=== PATIENT | female | born 1950 | race Caucasian/White ===

== ENCOUNTER 2020-10-15 13:17 | Outpatient (CLI) | payer MEDICARE, SELFPAY ==
--- NOTE | ~2020-10-15 | MM_ITS ---
EXAMINATION: MM screening rosemary BI w anupama HISTORY: Screening TECHNIQUE: Craniocaudal and mediolateral oblique 3-D tomosynthesis images were obtained and synthetic 2-D images were generated. CAD analysis was submitted and interpreted. COMPARISON: Comparison to multiple prior studies sequentially, with oldest reviewed study dated 01/03. BREAST PARENCHYMAL COMPOSITION: There are scattered areas of fibroglandular density. FINDINGS: There is no evidence of suspicious mass, calcification, or architectural distortion to sugg est malignancy in either breast. There has been no suspicious interval change. IMPRESSION: 1. No mammographic evidence of malignancy. 2. Recommend routine screening mammography in one year. BI-RADS Category 1: Negative Reviewed, dictated and finalized at location A. [employer]
== END 2020-10-15 13:18 | disposition home or self-care (01) ==
LOC: ANHIMG 13:21
PROVIDERS: PCP Nurse Practitioner Adult Health; Visit Provider Family Medicine
DX: Z12.31 Encounter for screening mammogram for malignant neoplasm of breast (principal)
CPT/HCPCS: 77063; 77067

== ENCOUNTER → 2021-09-28 04:00 | Outpatient (CLI) | payer MEDICARE, SELFPAY ==
[2021-09-28 20:22] LABS: SARS-CoV-2 RNA PCR Positive
== END ==
PROVIDERS: PCP Nurse Practitioner Adult Health; Visit Provider Nurse Practitioner Adult Health
DX: U07.1 COVID-19 (principal)
CPT/HCPCS: C9803; U0003; U0005

== ENCOUNTER 2021-12-22 08:19 | Outpatient (CLI) | payer MEDICARE, SELFPAY ==
--- NOTE | ~2021-12-22 | MM_ITS ---
EXAMINATION: MM screening rosemary BI w anupama HISTORY: Screening TECHNIQUE: Craniocaudal and mediolateral oblique 3-D tomosynthesis images were obtained and synthetic 2-D images were generated. CAD analysis was submitted and interpreted. COMPARISON: Comparison to multiple prior studies sequentially, with oldest reviewed study dated 09/2015. BREAST PARENCHYMAL COMPOSITION: The breasts are almost entirely fatty. FINDINGS: There is no evidence of suspicious mass, calcification, or architectural distortion to sugg est malignancy in either breast. There has been no suspicious interval change. IMPRESSION: 1. No mammographic evidence of malignancy. 2. Recommend routine screening mammography in one year. BI-RADS Category 1: Negative Reviewed, dictated and finalized at location A.
== END 2021-12-22 08:20 | disposition home or self-care (01) ==
PROVIDERS: PCP Nurse Practitioner Adult Health; Visit Provider Nurse Practitioner Adult Health
DX: Z12.31 Encounter for screening mammogram for malignant neoplasm of breast (principal)
CPT/HCPCS: 77063; 77067

== ENCOUNTER 2023-03-10 07:32 | Outpatient (CLI) | payer MEDICARE, SELFPAY ==
--- NOTE | ~2023-03-10 | MM_ITS ---
EXAMINATION: MM screening rosemary BI w anupama HISTORY: Screening mammogram TECHNIQUE: Craniocaudal and mediolateral oblique 3-D tomosynthesis images were obtained and synthetic 2-D images were generated. CAD analysis was submitted and interpreted. COMPARISON: December 22, 2021, October 15, 2020, August 13, 2019 bilateral screening mammogram examinat ions BREAST PARENCHYMAL COMPOSITION: The breasts are almost entirely fatty. FINDINGS: There is no evidence of suspicious mass, calcification, or architectural distortion to sugg est malignancy in either breast. There has been no suspicious interval change. IMPRESSION: 1. No mammographic evidence of malignancy. 2. Recommend routine screening mammography in one year. BI-RADS Category 1: Negative Reviewed, dictated and finalized at location A.
== END 2023-03-10 07:33 | disposition home or self-care (01) ==
LOC: ANHIMG 07:34
PROVIDERS: PCP Nurse Practitioner Family; Visit Provider Nurse Practitioner Family
DX: Z12.31 Encounter for screening mammogram for malignant neoplasm of breast (principal)
CPT/HCPCS: 77063; 77067

== ENCOUNTER 2024-07-11 07:54 | Outpatient (CLI) | payer MEDICARE, SELFPAY ==
--- NOTE | ~2024-07-11 | DEXA_ITS ---
Bone Density Report Name: VINCE LIGHT Age: 74 Sex: Female Ethnicity: White Date of : 1950 Indication: postmenopausal; screening for osteoporosis; height loss; hysterectomy; Referring Provider: OLESYA, RUCHI Bales Study: Bone densitometry was performed. Exam Date: July 11, 2024 Accession number: [id number] Bone Density: Region BMD T-score Z-score Classification AP Spine(L1-L4) 0.989 -0.5 1.9 Normal Femoral Neck (Left) 0.687 -1.5 0.6 Osteopenia Total Hip (Left) 0.869 -0.6 1.2 Normal Femoral Neck (Right) 0.685 -1.5 0.6 Osteopenia Total Hip (Right) 0.826 -1.0 0.9 Normal Total Hip Mean 0.848 -0.8 1.1 Normal World Health Organization criteria for BMD impression classify patients as: Normal (T-score at or above -1.0), Osteopenia (T-score between -1.0 and -2.5), or Osteoporosis (T-score at or below -2.5). 10-year Fracture Risk(1): Major Osteoporotic Fracture 9.7% Hip Fracture 1.7% Reported Risk Factors: [place] (), Neck BMD=0.687, BMI=41.1 (1) FRAX(R) Version 3.08. Fracture probability calculated for an untreated patient. Fracture probability may be lower if the patient has received treatment. Previous Exams: Region Exam Age BMD T-score BMD Change BMD Change Date g/cm2 vs Baseline vs Previous AP Spine (L1-L4) 07/11/2024 74 0.989 -0.5 0.035 (3.6%)* 0.028 (2.9%)# 08/13/2019 69 0.961 -0.8 0.007 (0.7%)# 0.007 (0.7%)# 01/03/2015 64 0.954 -0.8 Total Hip(Left) 07/11/2024 74 0.869 -0.6 -0.069 (-7.3%) -0.065 (-7.0%) 08/13/2019 69 0.935 -0.1 -0.003 (-0.4%) -0.003 (-0.4%) 01/03/2015 64 0.938 0.0 Total Hip(Right) 07/11/2024 74 0.826 -1.0 -0.101 (-10.9% -0.104 (-11.2% 08/13/2019 69 0.930 -0.1 0.003 (0.3%)# 0.003 (0.3%)# 01/03/2015 64 0.927 -0.1 *Denotes significance at 95% confidence level, LSC for AP Spine = 0.022 g/cm2, LSC for Total Hip = 0.027 g/cm2 # Denotes dissimilar scan types or analysis methods Clinical Information Provided by Patient: Has used the following medications: Vitamin D Has the following medical conditions: Hysterectomy Patient maximum height was 65.5 Drinks caffeinated beverages Onset of menses at age 11 Number of children 1 Impression: The patient has low bone mass, based on the Left Femoral Neck T-score. The patient has an estimated ten-year risk of hip fracture of 1.7% and an estimated ten-year risk of major fracture of 9.7%, based on the WHO FRAX algorithm. No significant bone loss was observed. Discussion: BONE DENSITY IS LOW AT ONE OR MORE SKELETAL SITES. This patient's lowest T-score is low at one or more skeletal sites. It meets the World Health Organization's (WHO) criteria for ?low bone mass? (T-score between -1.0 and -2.5). The patient's 10-year risk of fracture as calculated by FRAX is less than the threshold where pharmacological therapy is recommended by the National Osteoporosis Foundation (NOF). However, all treatment decisions require clinical judgment and consideration of individual patient factors, including patient preferences, comorbidities, previous drug use, risk factors not captured in the FRAX model (e.g., frailty, falls, vitamin D deficiency, increased bone turnover, interval significant decline in bone density) and possible under or overestimation of fracture risk by FRAX. The patient should follow a healthful lifestyle (good nutrition with adequate calcium and vitamin D, and appropriate weight-bearing exercise). Follow-Up: Consider repeating this study in 2 to 3 years to reassess this patient's status, or sooner if there is some new clinical indication. Reported by: SHANITA on 07/11/2024 8:33:00 AM. Reviewed, dictated and finalized at location [facility] PICHARDO
--- NOTE | ~2024-07-11 | MM_ITS ---
EXAMINATION: MM screening rosemary BI w anupama HISTORY: Screening TECHNIQUE: Craniocaudal and mediolateral oblique 3-D tomosynthesis images were obtained and synthetic 2-D images were generated. CAD analysis was submitted and interpreted. COMPARISON: Comparison to multiple prior studies sequentially, with oldest reviewed study dated 04/29. BREAST PARENCHYMAL COMPOSITION: Not Dense: The breasts are almost entirely fatty. FINDINGS: There is a developing cluster of punctate indeterminate calcifications in the upper outer q uadrant of the left breast, middle depth. The right breast is stable without evidence for malignancy. IMPRESSION: 1. Developing cluster of punctate left breast calcifications, upper outer quadrant middle depth. 2. Magnification views are recommended. BI-RADS Category 0: Incomplete: Needs additional imaging evaluation. Reviewed, dictated and finalized at location B. IMPRESSION: 1. Developing cluster of punctate left breast calcifications, upper outer quadr ant middle depth. 2. Magnification views are recommended. BI-RADS Category 0: Incomplete: Needs additional imaging evaluation.
== END 2024-07-11 07:55 | disposition home or self-care (01) ==
LOC: ANHIMG 07:57
PROVIDERS: PCP Nurse Practitioner Family; Visit Provider Family Medicine
DX: Z12.31 Encounter for screening mammogram for malignant neoplasm of breast (principal); R92.1 Mammographic calcification found on diagnostic imaging of breast; M85.89 Other specified disorders of bone density and structure, multiple sites; Z78.0 Asymptomatic menopausal state
CPT/HCPCS: 77063; 77067; 77080

== ENCOUNTER 2024-08-06 10:46 | Outpatient (CLI) | payer MEDICARE, SELFPAY ==
--- NOTE | ~2024-08-06 | MM_ITS ---
EXAMINATION: MM diagnostic rosemary LT w anupama HISTORY: Left breast microcalcifications TECHNIQUE: Spot magnification 3-D tomosynthesis images of the left breast were performed and syntheti c 2-D images were generated. CAD analysis was submitted and interpreted. COMPARISON: 07/11/2024 BREAST PARENCHYMAL COMPOSITION:Not Dense. The breasts are almost entirely fatty FINDINGS: Spot magnification views demonstrate a small loose group of punctate microcalcifications. N o definite pleomorphism or suspicious microcalcifications. No mass lesion or distortion. IMPRESSION: Loose group of probably benign microcalcifications in the left breast. Given small size/number of mannie cifications, six-month follow-up mammogram recommended to assure stability. BI-RADS category 3, probably benign findings. Reviewed, dictated and finalized at location . R REGULATOR IMPRESSION: Loose group of probably benign microcalcifications in the left breast. Given sm all size/number of calcifications, six-month follow-up mammogram recommended to assure stability. BI-RADS category 3, probably benign findings.
== END 2024-08-06 10:47 | disposition home or self-care (01) ==
PROVIDERS: PCP Internal Medicine; Visit Provider Internal Medicine
DX: R92.8 Other abnormal and inconclusive findings on diagnostic imaging of breast (principal)
CPT/HCPCS: 77061; 77065; G0279

== ENCOUNTER 2024-10-11 08:43 | Emergency (ER) | payer MEDICARE, SELFPAY ==
[2024-10-11 08:47] VITALS: BP 146/81; PULSE 76; RESP 16; TEMP 36.7; O2SAT 99
--- NOTE | 2024-10-11 09:00 | ED_ITS ---
HPI - URI/Sore Throat General Chief Complaint: Upper Respiratory Infection Stated Complaint: Sore Throat Time Seen by Provider: 10/11/24 09:01 Source: patient, RN notes reviewed and old records reviewed Mode of arrival: ambulatory Limitations: no limitations History of Present Illness HPI Narrative: Patient presents with complaints of runny nose and sore throat that began yesterday. She has not been taking anything for her symptoms. She is worried because she is going to visit relatives and does not want to be contagious. She denies any fever, chills, sweats. Voices no other concerns or complaints today Related Data Home Medications ?Medication ?Instructions ?Recorded ?Confirmed ?Last Taken ?Type metoprolol succinate 50 mg mg PO 10/11/24 Unknown History tablet,extended release 24 hr triamterene 37.5 tablet 10/11/24 Unknown History mg-hydrochlorothiazide 25 mg tablet Allergies Allergy/AdvReac Type Severity Reaction Status Date / Time Penicillins Allergy Severe Other Verified 10/11/24 08:46 prednisone Allergy Mild SWELLING Verified 10/11/24 08:46 OF LIPS Review of Systems Review of Systems: All systems reviewed & are unremarkable except as noted in HPI and below Constitutional: Constitutional: Reports no additional constitutional complaints ENT: Reports system reviewed and no additional complaints, except as doc umented, Reports nasal congestion, Reports nasal discharge and Reports sore throat Cardiovascular: Cardiovascular: Reports no additional cardiovascular complaints Respiratory: Respiratory: Reports no additional respiratory complaints Gastrointestinal: Gastrointestinal: Reports no additional gastrointestinal complaints PMFSH Comments At the time of my signature, I reviewed and agree with the nursing past medical, surgical, social, and family history. There is no relevant family history pertinent to the patient complaint. Exam Const: General: cooperative, no acute distress, alert and awake Orientation/consciousness: oriented to person, oriented to place and oriented to time HENMT: Head: normal to inspection Ears: TM's normal bilaterally Mouth: Yes moist mucous membranes Throat: posterior oropharynx normal Resp: Effort & Inspection: normal respiratory effort and able to speak in complete sentences Auscultation: clear to auscultation bilaterally, no crackles, no rales, no rhonchi and no wheezes Cardio: Palpation: normal PMI Rate: regular rate Rhythm: regular rhythm Heart sounds: S1 normal heart sound present and S2 normal heart sound present Neuro: General: oriented to person, oriented to place and oriented to time Cranial nerves: Yes CN's II-XII intact bilaterally Psych: Appearance: grossly normal Thought process: Normal thought process present Insight: Good insight present (Psych) Judgement: Good judgement present (Psych) Course Course Level of Care: Express Care Visit Vital Signs Vital signs: Vital Signs Temperature 98.0 F 10/11/24 08:47 Pulse Rate 76 10/11/24 08:47 Respiratory Rate 16 10/11/24 08:47 Blood Pressure 146/81 H 10/11/24 08:47 Pulse Oximetry 99 10/11/24 08:47 Oxygen Delivery Room Air 10/11/24 08:47 Temperature 98.0 F 10/11/24 08:47 Pulse Rate 76 10/11/24 08:47 Respiratory Rate 16 10/11/24 08:47 Blood Pressure 146/81 H 10/11/24 08:47 Pulse Oximetry 99 10/11/24 08:47 Oxygen Delivery Room Air 10/11/24 08:47 Reviewed MDM - URI/Sore Throat MDM Narrative Medical decision making narrative: Negative strep, reassuring physical exam. Supportive care measures discussed with patient. Discharge instructions reviewed with patient, as well as provided in writing per nursing staff. The instructions also include specific and strict return/GO TO THE ER as well as f/u information. All questions have been answered, and the patient deny any further questions with discharge and discharge plan. Some parts of this dictation were generated by voice recognition software and may contain typographical and/or grammatical inaccuracies. Differential Diagnosis Differential diagnosis: Likely upper respiratory infection, otitis media, viral infection and pharyngitis Medical Records Attestation: I reviewed the patient's medical records. Lab Data Attestation: I reviewed the patient's lab results. Discharge Plan Discharge Clinical Impression: Upper respiratory infection Qualifiers: URI type: unspecified viral URI Qualified Code(s): J06.9 - Acute upper respiratory infection, unspecified Patient Disposition: Home, Self-Care Condition: Stable Instructions: Antibiotic Form, Cold Symptoms (ED) Additional Instructions: Use [id number] medications to treat your symptoms. Follow package instructions. Follow-up with primary care provider. Emergency department for new or worse symptoms. Blood pressure today is 146/81. This is elevated. Normal blood pressure is 120/80. Please discuss this with primary care provider Patient Language: Grenadian Prescriptions: No Action metoprolol succinate 50 mg tablet extended release 24 hr PO triamterene-hydrochlorothiazid 37.5-25 mg tablet Follow-up/Referrals: Jean,MD Sunni [Primary Care Provider] - 1 Week Time of Disposition: 09:13
[2024-10-11 09:07] LABS: EDSTREPNEGPOS1 Negative (Negative)
== END 2024-10-11 09:15 | disposition home or self-care (01) ==
PROVIDERS: Emergency Provider Nurse Practitioner Family; PCP Internal Medicine
DX: J06.9 Acute upper respiratory infection, unspecified (principal); I10 Essential (primary) hypertension
CPT/HCPCS: 87081; 87880; 99213; G0463

== ENCOUNTER 2025-02-04 10:18 | Outpatient (CLI) | payer MEDICARE, SELFPAY ==
--- NOTE | ~2025-02-04 | MM_ITS ---
EXAMINATION: MM diagnostic rosemary LT w anupama HISTORY: Follow-up left breast calcifications TECHNIQUE: Additional 3-D tomosynthesis images of the left breast were performed and synthetic 2-D im ages were generated. CAD analysis was submitted and interpreted. COMPARISON: Comparison to multiple prior studies sequentially, with oldest reviewed study dated 07/21. BREAST PARENCHYMAL COMPOSITION: Not Dense: The breasts are almost entirely fatty. FINDINGS: Clustered punctate monomorphic calcifications in the upper outer quadrant of the left breas t, middle third, are stable compared with prior study. No new masses, calcifications or architectural distortion in the left breast. IMPRESSION: 1. Stable likely benign left breast calcifications. 2. Recommend 6 month follow-up diagnostic bilateral mammogram recommended. BI-RADS category 3, probably benign findings. Reviewed, dictated and finalized at location B.
--- OUTSIDE RECORDS SUMMARY | 2025-02-04 10:55 | XMS_ITS | CONTINUITY OF CARE DOCUMENT ---
Author Name michellechristina michellechristina Address Unknown Organization [facility] Address [address] [place] [address] Phone [phone] Care Team Providers Care Outdoor Adventure Leader Name Role Phone Edelmira Guevara MD Unavailable MICHELINE PORTILLO MD Unavailable PROBLEMS Condition Status Date Provider Notes Carotid artery stenosis - bilateral active Edelmira Guevara MD Cardiovascular Condition Screening active S lauro Guevara MD Palpitations active Edelmira Guevara MD Hypercholesterolemia active Edelmira zhu MD Vitamin D Deficiency active Edelmira zhu MD Osteoarthritis active Edelmira Guevara MD АНДРЕЙ- on CPAP active Edelmira Guevara MD Hypertension active Edelmira Guevara MD Cardiology examination active Edelmira fields MD ENCOUNTERS Date Type Provider Location Encounter Diag nosis 11/23 - 11/26 In-person encounter Office Visit Edelmira Guevara MD [facility] 10/03 - 10/03 In-person encounter Office Visit Edelmira Guevara MD [facility] Cardiology examinationHypertensionOSA- o n CPAPOsteoarthritisVitamin D DeficiencyHypercholesterolemiaPalpitationsCardiovasc ular Condition ScreeningCarotid artery stenosis - bilateral VITAL SIGNS Date Observation Value Provider Body Mass Index (Ratio) 41.62 kg/m2 Radha Guevara MD blood pressure, diastolic 82 mm[Hg] Delma nelson Ruple blood pressure, systolic 138 mm[Hg] Joy mackenzie Ruple oxygen saturation, oximetry 97 % Tia Ruple pulse rate 63 /min Tia Ruple blood pressure, cuff size regular Delma nelson Ruple weight E&M 235 [lb_av] Tia Ruple height E&M 63 [in_i] Tia Ruple weight E&M 241 [lb_av] Bea Owens g Body Mass Index (Ratio) 42.69 kg/m2 Radha Guevara MD blood pressure, diastolic 90 mm[Hg] Li [facility] blood pressure, systolic 132 mm[Hg] Ana Laura [facility] blood pressure, cuff size large Ke rri Gruenenfelder blood pressure, diastolic 90 mm[Hg] Ke rri Gruenenfelder blood pressure, systolic 132 mm[Hg] Shun ri Arianenfelder oxygen saturation, oximetry 97 % Yessenia Gonzalez pulse rate 62 /min Yessenia Anuj lder weight E&M 241 [lb_av] Yessenia Nnamdie lder height E&M 63 [in_i] Yessenia Dulce Marianenfe lder ALLERGIES Allergy Name Onset Date Reaction Criticality Status STEROIDS Low Criticality active FREDDY Low Criticality active PREDNISONE Low Criticality active RESULTS Date Observation Value Provider Reference Range Interpretation Location cholesterol, non-HDL, total 153 MG/DL (CALC) [facility] <130 High cholesterol/HDL ratio, serum, percent 3.1 (calc) [facility] <5.0 Normal LDL cholesterol, serum 136 MG/DL (CALC) [facility] High triglyceride, serum, fasting 75 mg/dL [facility] <150 Normal HDL cholesterol, serum 73 mg/dL [facility] > OR = 50 Normal cholesterol, serum 226 mg/dL [facility] <200 High HISTORY OF MEDICATION USE Medication Status Instructions Dates Provider Indications Com ments Crestor 5 mg tablet active TAKE 1 TABLET BY MOUTH EVERYDAY AT BEDTIME 7 Edelmira Guevara MD metoprolol succinate 50 mg tablet extended release 24 hr active Take 1 tablet by mouth once daily Yessenia Gonzalez triamterene-hyd rochlorothiazid 37.5-25 mg tablet active take 1 pill a day Yessenia Gonzalez aspirin 81 mg tablet,delayed release (DR/EC) active Take 1 tablet by mouth once a day Yessenia Gonzalez SOCIAL HISTORY Date Observation Value Provider smoking, year quit 1981 Edelmira Guevara MD cigarette use yes Edelmira blood MD smoking status Former smoker Edelmira olvera MD smoking, year quit 1981 Edelmira Guevara MD cigarette use yes Edelmira blood MD smoking status Former smoker Edelmira olvera MD INSURANCE PROVIDERS Payer name Policy type / Coverage type [place] red libertarian ID [facility] [id number] [place] MEDICARE PART B Medicare [id number] ADVANCE DIRECTIVES Name Date DISCUSSED - NO DECISION MADE TREATMENT PLAN Date Name Performer Cardiology:The patie nt is using CPAP on a regular basis. The patient has been benefiting from therapy and should continue use. T his visit has been a part of the consistent, comprehensive, and ongoing management of the chronic medical condition(s) listed above for the patient. Edelmira Guevara MD Cardiology:Continue toprololXL Edelmira Guevara MD Cardiology:Started C restor 5mg today C heck lipids 2-3 months r ecommend dietary changes before adding statin r epeat labs This visit has been a part of the consistent, comprehensive, and ongoing management of the chronic medical condition(s) listed above for the patient. Edelmira Guevara MD Cardiology:This visi t has been a part of the consistent, comprehensive, and ongoing management of the chronic medical condition(s) listed above for the patient. R PM reviewed. BP 131/73. BP today: 138/82 P rior BP: 132/90 (10/03/2024) Her updated medication list for this problem includes: Metoprolol Succinate 50 Mg Tablet Extended Release 24 Hr (Metoprolol succinate) ..... Take 1 tablet by mouth once daily Triamterene-hydrochlorothiazid 37.5-25 Mg Tablet (Triamterene-hydrochlorothiazid) ..... Take 1 pill a day Aspirin 81 Mg Tablet,delayed Release (dr/ec) (Aspirin) ..... Take 1 tablet by mouth once a day Edelmira Guevara MD Cardiology:CONCLUSIO NS: 1 . There is septal hypertrophy without outflow tract obstruction. Normal left ventricular systolic function. Normal left v entricular size. There is E to A wave reversal consistent with impaired LV relaxation. E/E': 6.7 Left ventricular ejection f raction is measured at 60 %. 2 . Mild enlargement of right ventricle. Normal right ventricular systolic function. 3. No significant valvular abnormalities. This visit has been a part of the consistent, comprehensive, and ongoing management of the chronic medical condition(s) listed above for the patient. Edelmira Guevara MD Cardiology:CONCLUSIO NS: 1 . Mild plaque with less than 50% stenosis of the internal carotid arteries bilaterally. 2 . Vertebral flow is antegrade bilaterally. S tart STatin T his visit has been a part of the consistent, comprehensive, and ongoing management of the chronic medical condition(s) listed above for the patient. Edelmira Guevara MD Cardiology:previsoul y had a dental XR that was noted to have calcific plaque, then inderwent duplex showing <50% Edelmira Guevara MD Cardiology:Check Ca score and echo Edelmira Guevara MD Cardiology:The patie nt is using CPAP on a regular basis. The patient has been benefiting from therapy and should continue use. T his visit has been a part of the consistent, comprehensive, and ongoing management of the chronic medical condition(s) listed above for the patient. May need CPAP parameters adjusted , may need titration, refer back to pulmonary Edelmira Guevara MD Cardiology Edelmira Guevara MD Cardiology:This visi t has been a part of the consistent, comprehensive, and ongoing management of the chronic medical condition(s) listed above for the patient. D iscussion of benefits for remote patient monitoring took place. Patient gives consent for remote monitoring of physiologic parameters including, but not limited to, weight, blood pressure, pulse oximetry, respiratory flow rate. H er updated medication list for this problem includes: Metoprolol Succinate 50 Mg Tablet Extended Release 24 Hr (Metoprolol succinate) ..... Take 1 tablet by mouth once daily Triamterene-hydrochlorothiazid 37.5-25 Mg Tablet (Triamterene-hydrochlorothiazid) ..... Take 1 pill a day Aspirin 81 Mg Tablet,delayed Release (dr/ec) (Aspirin) ..... Take 1 tablet by mouth once a day BP today: 132/90 Edelmira Guevara MD Cardiology:recommend dietary changes before adding statin r epeat labs Edelmira Guevara MD Cardiology:telemonit or for 2 weeks c annnot r/o afib given dx of АНДРЕЙ Edelmira Guevara MD Date Name LIPID PANEL COMPREHENSIVE METABO LIC PANEL, W/EGFR LIPID PANEL CT, Coronary Calcium Score Carotid Duplex Bilat eral Complete Echo Stress Routine RPM (remote patient monitoring) Monitor - Telemetry (Mobile Cardiac) HISTORY OF PROCEDURES Procedure Date Procedure Name Provider Procedure Notes S tatus Complex e/m visit add on Edelmira Guevara MD completed EKG Edelmira Guevara MD compl eted LESLIE Guevara MD compl eted
--- OUTSIDE RECORDS SUMMARY | 2025-02-04 10:55 | XMS_ITS | Data Portability ---
Author Organization [place] - [facility], Main Office Address [address] [place] [address] Care Team Providers Care Manufacturing Helper Name Role Phone RANDALLSUNNI Zhu Primary Care Provider Assessment Encounter Date Assessment Date Assessment LastModified by Organization Details LastModified Time 07/18/2024 07/18/2024 01/03/2024: LDL 111 Not available 07/17/2024 16:09:02 08/22/2024 08/22/2024 Time spent with patient included: preparing to see patient by reviewing tests, obtaining and reviewing history, medical examination and evaluation, counseling and educating the patient, ordering medications and tests, documenting clinical information in EHR, independently interpreting results and communicating results to the patient for a total of 40 minutes. [email or web address] Not available 08/22/2024 11:46:06 08/29/2024 08/29/2024 01/03/2024: LDL 111 08/07/2024: Chol 209, LDL 120 Not available 08/29/2024 09:32:28 10/09/2024 10/09/2024 Microcalcificati ons of L breast per recent mammogram in 07/2024. BIRADS: 3, probably benign. Recommended repeat imaging 6 months following that image, so January of 2024 she will need repeat imaging. Patient agreeable to scheduling this and will f/u PRN if concerns arise. [email or web address] Not available 10/09/2024 12:35:30 01/14/2025 01/14/2025 01/03/2024: LDL 111 08/07/2024: Chol 209, LDL 120 01/09/2024: Chol 164, LDL 66 Stable Not available 01/14/2025 09:46:43 Plan of Treatment Reminders Order Date Submit Date Provider Last Modified By Organization Details Last Modified Time Details Appointments Follow Up 15 2024 09:45A Pebbles mackenzie MD Not available Not available Not available Any 15 2024 10:00A M Tracey Solis, BRASS CH[employer]ER Not available Not available Not available Lab vitamin D, 25-hydrox y, total, serum [address] [facility], [address], [place], [address], 01/15/2025 16:42:41 CMP, serum or plasma [address] [facility], [address], [place], [address], 01/15/2025 16:42:40 CBC w/ auto diff [address] [facility], [address], [place], [address], 01/15/2025 16:42:41 lipid panel, serum [address] [facility], [address], [place], [address], 01/15/2025 16:42:41 TSH + free T4, serum [address] [facility], [address], [place], [address], 01/15/2025 16:42:41 vitamin D, 25-hydrox y, total, serum 2023 024 [facility], [address], [place], [address], 01/09/2025 02:52:30 CMP, serum or plasma 2023 024 [facility], [address], [place], [address], 01/09/2025 02:52:27 CBC w/ auto diff 2023 024 [facility], [address], [place], [address], 01/09/2025 02:52:29 lipid panel, serum 2023 024 [facility], [address], [place], [address], 01/09/2025 02:52:26 TSH + free T4, serum [address] [facility], [address], [place], [address], 11/27/2024 16:18:27 vitamin D, 25-hydrox y, total, serum 2023 024 [facility], [address], [place], [address], 08/08/2024 04:07:05 CMP, serum or plasma 2023 024 [facility], [address], [place], [address], 08/08/2024 04:07:02 CBC w/ auto diff 2023 024 [facility], [address], [place], [address], 08/08/2024 04:07:04 lipid panel, serum 2023 024 [facility], [address], [place], [address], 08/08/2024 04:06:59 TSH + free T4, serum 2023 024 [facility], [address], [place], [address], 08/08/2024 04:07:01 Referral breast surgery referral - Please call patient to schedule. 2023 024 jeff Coburn MD, [address], [address], [place], [address], 11/16/2024 09:22:38 cardiolog ist referral - Please call patient to schedule. 2023 024 [place], [address], [place], [address], 10/03/2024 12:50:02 Procedures None recorded. Surgeries None recorded. Imaging MAMMO, diagnosti c, digital, unilatera l - Please call patient to schedule. 2024 025 [facility], [address], [place], [address], 01/15/2025 12:00:30 US, breast, unilatera l - Please call patient to schedule. [address], [address], [place], [address], 08/20/2024 14:54:06 MAMMO, diagnosti c, digital, unilatera l - Please call patient to schedule. 2023 024 [facility], [address], [place], [address], 08/06/2024 12:40:30 Medication Orders None recorded. Patient TargetsNo targets recorded. Patient Instructions Encounter Date Encounter Id Patient Instructions Last Modified By Organization Details Last Modified Time 07/18/2024 [id number] dementia rating scale-2* [email or web address] Not available 07/18/2024 12:46:44 alcohol misuse* [email or web address] Not available 07/18/2024 12:46:56 depression screening* Not available 07/18/2024 12:47:12 Timed Up and Go test (TUG)* [email or web address] Not available 07/18/2024 12:47:35 multi-dimensiona l health assessment questionnaire* [email or web address] 2 Not available 07/20/2024 13:43:19 advance directiv es: care instructions pierrea 2 Not available 07/20/2024 13:43:19 advance care planning: care instructions pierrea 2 Not available 07/20/2024 13:43:19 [place] Advance Directives pierrea 2 Not available 07/20/2024 13:43:19 Personalized a lth Plan and Screening Recommendations Advance Directives - Do you have one? No You have indicated that you are capable of preparing your advance care directive Advance Directives - Do we have your advance directive on file in your health record? Primary Prevention/Interven tion (prevents or decreases the chance of common diseases from occurring) Smoking Risk: Non Smoker Alcohol Misuse Screening: Negative Weight: Appropriate Overwei ght continue your current weight loss efforts try to lose 5% of your body weight try to lose 10% of your body weight Physical activity: Need more exercise/physical activity minimum of 10-20 minutes of activity that causes mild breathlessness/day Nutrition: Good Average Refer to attached handout Heart-Healthy Diet: After Your Visit Fall Risk (screened today): Low Intermediate Refer to attached handout Preventing Falls: After your Visit Vaccines Pneumococcal: Ordered Recommended today Influenza: Ordered Chronic Disease Risks Stroke: Low Risk Intermediate Risk Heart Attack: Low risk Intermediate Risk Clogging of the Arteries: Low risk Intermediate Risk Diabetes: Low Risk I have no recommendations Secondary Prevention/Interven tion (detects treatable diseases before they may cause symptoms, disability, or ) Breast Cancer Screening with mammogram: Your next mammogram: Ordered Cervical/Uterine/Ov carolyn Cancer Screening: No screening necessary Osteoporosis Screening: Date Screening Last Performed: 2023 Colon Cancer Screening: No screening necessary DDeclined Eye Disease Screening: Ordered Recommended today Dementia Risk: Low I have no recommendations Depression Screening: Negative [email or web address] Not available 07/18/2024 12:55:38 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 Referring Physician: Sunni Pena, Internal Medicine, Encounter Date: 08/29/2024 Breast Surgery Referral for Mammography abnormal Please call patient to schedule. Referring Physician: Sunni Pena, Internal Medicine, Encounter Date: 08/29/2024 Results Created Date Observation Date Name Description Value Unit Range Abnormal Flag Note LastModifiedBy Organization Detail LastModifiedTime 07/11/2007/11/2024 MAMMO , scree bernarda, digit al, bilat eral No observ ation record ed. [address] [facility], [place], [address], 07/17/2024 15:45:56 07/11/2007/11/2024 MAMMO , scree bernarda, digit al, bilat eral No observ ation record ed. [address] [facility], [place], [address], 07/17/2024 15:45:57 07/11/2007/11/2024 MAMMO , scree bernarda, digit al, bilat eral No observ ation record ed. [address] [facility], [place], [address], 07/17/2024 15:45:57 07/11/2007/11/2024 DEXA No observ ation record ed. [address] [address], [place], [address], 07/12/2024 08:19:38 07/11/2007/11/2024 DEXA No observ ation record ed. [address] [address], [place], [address], 07/12/2024 08:19:38 07/11/2007/11/2024 DEXA No observ ation record ed. [address], [place], [address], 07/12/2024 08:19:39 07/12/2007/1107/11/2024 MAMMO , scree bernarda, digit al, bilat eral No observ ation record ed. [email or web address] [facility] [address], [place], [address], 07/12/2024 13:24:28 08/06/20 24 08/06/2024 MAMMO , diagn ostic , digit al, unila teral No observ ation record ed. [facility] [address], [place], [address], 08/06/2024 12:40:30 09/28/19 25 04/29/2017 XR, chest , 2 view No observ ation record ed. BARCODE Not Available 2024 10:06:40 09/28/19 25 12/16/2005 polys omnog gopi, split night No observ ation record ed. BARCODE Not Available 2024 10:06:40 Result Notes None recorded. Problems Name Problem SNOMED Code Status Onset Date Resolution Date Notes Provider Name and Address Organization Details Recorded Time Skin irritatio n 254003014 Active 2022 CORY Vicente [address], [address], [place], [address] , [facility] 3 09:08:10 Pain of bilateral knee joints 09372263536 4104 Active 2023 Aparna Marc MD [address], [address], [place], [address] , [facility] 4 10:02:30 Bilateral osteoarth ritis of knees 99907978424 9107 Active 2023 Linn smith, [facility] 4 10:23:45 Serum vitamin B12 below reference range 952794532 Active 2023 Sunni zhu MD [address], [address], [place], [address] , [facility] 4 16:08:32 Mammograp hy abnormal 649910971 Active 2023 Sunni zhu MD [address], [address], [place], [address] , [facility] 4 16:09:13 Hypersomn ia with sleep apnea 16051573 Active 2023 Piper Gonzalez MA null, [facility] 4 10:58:35 Hypersomn ia 11735757 Active 2023 Piper Gonzalez MA null, [facility] 4 10:58:35 Allergic rhinitis 90966816 Active 2023 Sunni zhu MD [address], [address], [place], [address] , [facility] 4 09:33:48 Mammograp hic microcalc ification of left breast 63030009170 739539 Active 2024 Aakash cordova MD [address], [place], [address] , [facility] 5 17:06:18 Inguinal pain 947282597 Completed Not Available [facility] 3 04:53:59 Benign paroxysma l positiona l vertigo 383543924 Active Not Available [facility] 3 04:53:59 Labyrinth itis 37616567 Completed Not Available [facility] 3 04:53:59 Dyspnea 075379945 Completed Not Available [facility] 3 04:53:59 Dehydrati on 91059754 Completed Not Available [facility] 3 04:53:59 Vitamin D deficienc y 79713587 Active Not Available [facility] 3 04:53:59 Sinusitis 46559397 Completed Not Available [facility] 3 04:53:59 Hypertens med disorder 41927832 Active Not Available [facility] 3 04:53:59 Disorder of vitamin D 106642261 Active Not Available [facility] 3 04:53:59 Osteoarth ritis 131913937 Active Not Available [facility] 3 04:53:59 Dizziness 906486959 Completed Not Available [facility] 3 04:54:00 Body mass index 40+ - severely obese 964444619 Active 2018 Not Available [facility] 3 04:54:00 Obesity 521769717 Active Not Available [facility] 3 04:54:00 Onychomyc osis 653832017 Active Not Available [facility] 3 04:54:00 Dependenc e on continuou s positive airway pressure ventilati on 827624132 Active Not Available [facility] 3 04:54:00 Seasonal allergy 352779800 Active Not Available [facility] 3 04:54:00 Candidias is of skin 15554572 Completed Not Available [facility] 3 04:54:00 Hyperlipi demia 52485304 Active Not Available [facility] 3 04:54:00 Essential hypertens ion 69350529 Active Not Available [facility] 3 04:54:00 Polyp of colon 48536876 Active Not Available [facility] 3 04:54:00 Sleep apnea 24235134 Active Not Available [facility] 3 04:54:01 Obstructi ve sleep apnea syndrome 79966599 Active 2018 Not Available [facility] 3 04:54:01 Palpitati ons 84821800 Completed Not Available [facility] 3 04:54:01 COVID-19 144203471 Active 2021 Not Available [facility] 3 04:54:01 Fatigue 78258197 Completed Not Available [facility] 3 04:54:01 Problem Notes None recorded. Procedures Surgical History Date Name Laterality Status Provider Name and Address Organization Details Recorded Time 07/18/20 24 Medicare Wellness CPT Code, subsequent completed KOFI Maxwell [facility] [facility] 07/18/2024 08:35:06 07/18/20 24 Advanced Care Planning completed KOFI Maxwell [facility] 07/18/2024 12:44:22 Hysterectomy completed Michelle Pal CNA [employer] 01/19/2024 09:55:03 Colonoscopy completed Not Available [facility] 11/17/2022 04:43:22 Imaging Results Imaging Date Name Status LastModified by Organ [facility] Details LastModified Time 07/11/2024 MAMMO, screening, digital, bilateral active [address], [address], 07/17/2024 15:45:56 07/11/2024 MAMMO, screening, digital, bilateral active [address], [address], 07/17/2024 15:45:57 07/11/2024 MAMMO, screening, digital, bilateral active [address], [address], 07/17/2024 15:45:57 07/11/2024 DEXA completed [address], [address], 07/12/2024 08:19:38 07/11/2024 DEXA completed [address], [address], 07/12/2024 08:19:38 07/11/2024 DEXA completed [address], [address], 07/12/2024 08:19:39 07/11/2024 MAMMO, screening, digital, bilateral completed [address], [address], 07/12/2024 13:24:28 08/06/2024 MAMMO, diagnostic, digital, unilateral active [address], [address], 08/06/2024 12:40:30 04/29/2017 XR, chest, 2 view completed [facility] Information not available 09/28/2024 10:06:40 12/16/2005 polysomnogram, split night completed [facility] Information not available 09/28/2024 10:06:40 Procedure Notes None recorded. Medical Equipment None Reported. Allergies Allergen ID Allergen Name Allergen Category Reaction Reaction Severity Criticality Documentation Date Start Date Code Code System Note Provider Name and Address Organization Details Recorded Time 27084 Hemax medicatio n itching Not available Not available 01/19/2024 26130 07 RxNorm Michelle Kae, DIAMOND SETTER APPRENTICE null, [place] [facility] [place] [facility] 4 09:50:38 [address] [facility] environmi nt,medica tion itching Not available Not available 01/19/2024 61059 RxNorm Michelle Kae, DIAMOND SETTER APPRENTICE null, [place] [facility] 4 09:51:03 31620 benzocain e medicatio n itching Not available Not available 01/19/2024 1399 RxNorm Michelle Kae, DIAMOND SETTER APPRENTICE null, [place] [facility] 4 09:51:28 66218 benzyl alcohol medicatio n itching Not available Not available 01/19/2024 1426 RxNorm Michelle Kae, DIAMOND SETTER APPRENTICE null, [place] [facility] 4 09:51:44 8421 prednison e medicatio n other Not available Not available 11/17/2022 8640 RxNorm SWELL ING Not Available [facility] 3 05:04:52 8422 hydrocort isone medicatio n rash Not available Not available 11/17/2022 5492 RxNorm Not Available [facility] 3 05:04:52 8425 Product containin g penicilli n (product) medicatio n other Not available Not available 11/17/2022 24045 8001 SNOMED Not Available [facility] 3 05:04:52 Medications Name Sig Start Date Stop Date Status Note LastModified by Organization Details LastModified Time Prescriptio n - Renewal 01/09 completed Not Available Not Available Not Available celecoxib 200 mg capsule TAKE 1 CAPSULE BY MOUTH EVERY DAY 07/18 completed Not Available Not Available Not Available cetirizine 10 mg tablet TK 1 T PO ONCE A DAY 05/14 completed Not Available Not Available Not Available azithromyci n 250 mg tablet Take 2 TABLET EVERY DAY by oral route for 1 day then take 1 daily for 4 days 02/19 completed Not Available Not Available Not Available metoprolol succinate ER 50 mg tablet,exte nded release 24 hr TAKE 1 TABLET BY MOUTH DAILY active Not Available Not Available No t Available promethazin e 12.5 mg tablet Take 1 tablet 4 times a day by oral route as needed for 15 days. 04/01 completed Not Available Not Available Not Available famotidine 40 mg tablet TK 1 T PO QD 10/12 completed Not Available Not Available Not Available meclizine 12.5 mg tablet Take 2 tablets 3 times a day by oral route as directed for 15 days. 04/01 completed Not Available Not Available Not Available ciprofloxac in 500 mg tablet Take 1 tablet every 12 hours by oral route for 7 days. 12/29 completed Not Available Not Available Not Available Nasacort AQ 55 mcg nasal spray aerosol [place] 1 spray every day by intranasa l route for 90 days. 11/14 completed Not Available Not Available Not Available aspirin 81 mg tablet,elda yed release Take 1 tablet every day by oral route for 90 days. 2018 active Not Available Not Available Not Avai lable triamterene 37.5 mg-hydrochl orothiazide 25 mg capsule TAKE 1 CAPSULE BY MOUTH DAILY 11/02 completed Not Available Not Available Not Available Lamisil AT 1 % topical cream APPLY TO THE AFFECTED AND SURROUNDI NG AREAS OF SKIN BY TOPICAL ROUTE ONCE DAILY 08/27 completed Not Available Not Available Not Available terbinafine HCl 250 mg tablet TK 1 T PO QD 08/27 completed Not Available Not Available Not Available Lavinia 180 mg tablet Take 1 tablet every day by oral route. active Not Available Not Available No t Available clotrimazol e-betametha sone 1 %-0.05 % topical cream APPLY TOPICALLY TO THE AFFECTED AREA TWICE DAILY active Not Available Not Available No t Available polymyxin B sulfate 10,000 unit-trimet hoprim 1 mg/mL eye drops 12/28 completed Not Available Not Available Not Available triamterene 37.5 mg-hydrochl orothiazide 25 mg tablet TAKE 1 TABLET BY MOUTH EVERY DAY active Not Available Not Available No t Available montelukast 10 mg tablet Take 1 tablet every day by oral route in the evening for 90 days. active Not Available Not Available No t Available hydroxyzine HCl 25 mg tablet 10/12 completed Not Available Not Available Not Available metoprolol succinate ER 25 mg tablet,exte nded release 24 hr Take 1 tablet every day by oral route for 30 days. 08/27 completed Not Available Not Available Not Available Vitamin D2 1,250 mcg (50,000 unit) capsule TK ONE C PO Q WEEK 03/17 completed Not Available Not Available Not Available fluticasone propionate 50 mcg/actuati on nasal spray,suspe nsion SHAKE LIQUID AND USE 2 SPRAYS IN EACH NOSTRIL EVERY DAY active Not Available Not Available No t Available rosuvastati n 5 mg tablet TAKE 1 TABLET BY MOUTH EVERY DAY AT BEDTIME active Not Available Not Available No t Available ketorolac 0.4 % eye drops 12/28 completed Not Available Not Available Not Available Vitamin D3 active Not Available Not Av ailable Not Available fexofenadin e 03/31 completed Not Available Not Available Not Available Eucrisa 2 % topical ointment APPLY A THIN LAYER TO THE AFFECTED AREA TOPICALLY TWICE DAILY 08/27 completed Not Available Not Available Not Available Vitals Date Recorded Body height Body mass index (BMI) Body weight Body temperature Heart rate Systolic blood pressure Diastolic blood pressure Provider Name and Address Organization Details Last Updated DateTime 4 160.02 cm 41.1 kg/m2 720563. 43 g 97.8 [degF] 60 /min 146 mm[Hg] 84 mm[Hg] KIM Hutton [facility] [employer] 4 12:13:46 Date Recorded Respiratory rate Provider Name a nd Address Organization Details Last Updated DateTime 07/18/2024 16 /min Last Maher LPN [facility] [employer] 07/18/2024 12:38:27 Date Recorded Body height Body mass index (BMI) Body weight Body temperature Heart rate Oxygen saturation Oxygen saturation in Arterial blood by Pulse oximetry Systolic blood pressure Diastolic blood pressure Provider Name and Address Organization Details Last Updated DateTime 4 160.02 cm 42 kg/m2 944779. 11 g 98.1 [degF] 76 /min 95 % 95 % 124 mm[Hg] 74 mm[Hg] Piper Gonzalez MA [facility] [employer] [facility] 4 11:05:16 Date Recorded Body height Body mass index (BMI) Body weight Body temperature Heart rate Systolic blood pressure Diastolic blood pressure Provider Name and Address Organization Details Last Updated DateTime 4 160.02 cm 41.3 kg/m2 461756. 02 g 97.1 [degF] 72 /min 122 mm[Hg] 80 mm[Hg] KIM Hutton [facility] [employer] [facility] 4 09:28:00 Date Recorded Body height Body mass index (BMI) Body weight Body temperature Respiratory rate Heart rate Oxygen saturation Oxygen saturation in Arterial blood by Pulse oximetry Systolic blood pressure Diastolic blood pressure Provider Name and Address Organization Details Last Updated DateTime 5 160.02 cm 41.3 kg/m2 438905. 02 g 97.6 [degF] 14 /min 67 /min 97 % 97 % 120 mm[Hg] 80 mm[Hg] Cassie Hutson [facility] [employer] [facility] 5 10:38:33 Date Recorded Body height Body mass index (BMI) Body weight Body temperature Heart rate Respiratory rate Oxygen saturation Oxygen saturation in Arterial blood by Pulse oximetry Systolic blood pressure Diastolic blood pressure Provider Name and Address Organization Details Last Updated DateTime 5 160.02 cm 42.5 kg/m2 575070. 17 g 97.8 [degF] 70 /min 16 /min 97 % 97 % 140 mm[Hg] 80 mm[Hg] Vijaya Khanna [facility] [employer] [facility] 5 09:29:35 Social History Question Answer Notes LastModified by Organization Details LastModified Time Tobacco Smoking Status Former Smoker Not Available [employer] 11/17/2022 04:41:42 Do You Have An Advance Directive? No Information not available 07/18/2024 How Many Years Have You Consumed Alcohol? 50 [email or web address] Information not available 07/18/2024 Are You Blind Or Do You Have Difficulty Seeing? No Information not available 07/18/2024 Is Blood Transfusion Acceptable In An Emergency? Yes [email or web address] Information not available 07/18/2024 What Is Your Level Of Caffeine Consumption? Occasional [id number] Information not available 11/17/2022 How Much Tobacco Do You Chew? None [id number] Information not available 11/17/2022 What Is Your Code Status? Full Code [email or web address] Information not available 07/18/2024 In The 14 Days Before Symptom Onset, Have You Had Close Contact With A Laboratory-conf irmed COVID-19 While That Case Was Ill? No Information not available 07/18/2024 In The 14 Days Before Symptom Onset, Have You Had Close Contact With A Person Who Is Under Investigation For COVID-19 While That Person Was Ill? No Information not available 07/18/2024 Are You Deaf Or Do You Have Serious Difficulty Hearing? Yes Patient Reports Tone Loss In Right Ear [email or web address] Information not available 07/18/2024 What Type Of Diet Are You Following? REGULAR [email or web address] Information not available 07/18/2024 Which Illicit Or Recreational Drugs Have You Used? None [id number] Information not available 11/17/2022 What Is The Highest Grade Or Level Of School You Have Completed Or The Highest Degree You Have Received? [id number] [email or web address] Information not available 07/18/2024 Do You Have An Electrostatic Air Filter? Yes [email or web address] Information not available 08/22/2024 How Many Days Of Moderate To Strenuous Exercise, Like A Brisk Walk, Did You Do In The Last 7 Days? 2 Floor Exercises Given By Physical Terepy Last Year. [email or web address] Information not available 07/18/2024 On Those Days That You Engage In Moderate To Strenuous Exercise, How Many Minutes, On Average, Do You Exercise? 20 [email or web address] Information not available 07/18/2024 Have There Been Any Changes To Your Family Or Social Situation? No Information not available 07/18/2024 What Is The Fluoride Status Of Your Home? Unknown [email or web address] Information not available [id number]|2025-01-30 08:33:18|2025-01-30 08:33:18|[facility]||||"H&P: HPI History of Present Illness Date/Time: 01/30/25 08:33 Chief Complaint: Hiatal hernia, GERD Narrative: This is a 45-year-old man who presented with a moderate to large-sized hiatal hernia and significant acid reflux. He has been experiencing frequent nausea and vomiting. He had undergone an EGD for hematemesis and was found to have a Germain lesion that was the likely source of bleeding. He was treated for this and has had no more hematemesis. Upper GI showed moderate-sized hiatal hernia with reflux. This also showed normal esophageal motility. Gallbladder ultrasound was normal and gastric emptying scan was normal. He now presents for repair of the hiatal hernia with fundoplication. Review of Systems Review of Systems: All systems reviewed & are unremarkable except as noted in HPI and below Constitutional: Constitutional: Denies chills, Denies fever(s), Denies headache(s) and Denies weight loss Eyes: Eyes: Denies change in vision ENT: Denies dizziness, Denies headache(s), Denies neck mass and Denies throat swelling Cardiovascular: Cardiovascular: Denies chest pain, Denies lightheadedness and Denies dyspnea Respiratory: Respiratory: Denies cough, Denies dyspnea and Denies wheezing Gastrointestinal: Gastrointestinal: Denies abdominal pain, Denies change in bowel habits, Denies nausea and Denies vomiting Genitourinary: Genitourinary: Denies hematuria and Denies dysuria Musculoskeletal: Musculoskeletal: Reports as per HPI Integumentary/Breasts: Skin/Breast: Reports as per HPI Neurologic: Denies dizziness and Denies headache(s) Allergic/Immunologic: Allergic/Immunologic: Denies throat swelling and Denies wheezing [facility] Past Medical History Medical History (Updated 01/30/25 @ 08:29 by Manish Blanco MD) Alcohol abuse quit 4 years ago Germain lesion, acute GERD (gastroesophageal reflux disease) Leukocytosis Coffee ground emesis Anxiety Hepatic steatosis on CT scan in 10/2024 Hiatal hernia moderate-sized sliding hiatal hernia Bipolar disorder Surgical History Surgical History History of lumbar fusion Family History Family History Father Alcoholism Mother Diabetes mellitus Hypertension Depression Social History Social History (Updated 01/30/25 @ 08:28 by Manish Blanco MD) Social History: Surrogate medical decision maker: Alma Baer, spouse. Code status: Full code. Smoking status: Never smoker Alcohol intake: former Substance use: never Do You Feel Safe in your Home?: Yes Lack of Transportation: YES Lack of Food: Never True Current Housing: I Have Housing Concerned About Future Housing: No Difficulty Paying Gas/Electric Bills: No Difficulty Paying for Meds: No Currently Unemployed: No Education: Trade/Vocational Certificate Difficulty w/ Childcare or Family Care: No Living arrangements: with family Additional living arrangements comments: Lives with and 4 children. Additional occupation/education comments: [employer]er. Spiritual care concerns: No Meds Home Medications and Allergies Home Medications Medication Instructions Recorded Confirmed Type bupropion HCl 300 mg 24 hr tablet, 300 mg PO DAILY 10/29/24 01/30/25 History extended release cariprazine 3 mg capsule (Vraylar) 3 mg PO DAILY 10/29/24 01/30/25 History dexmethylphenidate 15 mg 15 mg PO DAILY 10/29/24 01/30/25 History capsule,extended release [id number] eszopiclone 1 mg tablet 1 mg PO HS 10/29/24 01/30/25 History omeprazole 40 mg capsule,delayed 40 mg PO BID 10/29/24 01/30/25 History release propranolol 120 mg capsule,24 120 mg PO Q24H 10/29/24 01/30/25 History hr,extended release quetiapine 50 mg tablet 50 mg PO HS 10/29/24 01/30/25 History venlafaxine 75 mg capsule,extended 75 mg PO DAILY 10/29/24 01/30/25 History release 24 hr metoclopramide HCl 5 mg tablet 5 mg PO .before dinner #30 tabs 11/07/24 01/30/25 Rx (Reglan) lithium carbonate 600 mg capsule 600 mg PO BID 01/24/25 01/30/25 History Allergies Allergy/AdvReac Type Severity Reaction Status Date / Time No Known Allergies Allergy Verified 01/30/25 08:23 Vital Signs Vital Signs - 24 hr 01/30/25 08:27 Temperature 98.4 F Pulse Rate 66 Respiratory Rate 18 Blood Pressure 133/83 Pulse Oximetry 95 Oxygen Delivery Room Air Exam Const: General: no acute distress and alert Orientation/consciousness: patient oriented x3 HENMT: Head: normocephalic and atraumatic Ears: hearing grossly normal bilaterally Face/Nose/Sinus: Normal nares present Mouth: Yes Normal oral and palatal mucosa present Eyes: Periorbital: periorbital findings normal Sclera: sclerae normal EOM: EOMs intact bilaterally Neck: Neck: normal visual inspection, no lymphadenopathy and trachea midline Chest: Chest palpation & inspection: normal inspection of the chest Resp: Effort & Inspection: normal respiratory effort Auscultation: clear to auscultation bilaterally Cardio: Jugular venous distension: no JVD Rate: regular rate Rhythm: regular rhythm Heart sounds: S1 normal heart sound present and S2 normal heart sound present Peripheral pulses: Peripheral pulses 2+ throughout GI: Inspection: normal to inspection GI Palp: Yes Soft to palpation, No Tenderness to palpation present (GI), No Guarding due to palpation present (GI) and No Rebound tenderness present Percussion: Yes normal to percussion Auscultation: normal bowel sounds : General: Yes no CVA tenderness Back/Spine/Pelvis: Back: no CVA tenderness Neuro: General: patient oriented x3, no focal motor deficits and CN's II-XI intact bilaterally Cognition (Neuro): normal cognition Speech: normal speech Motor exam (neuro): 5/5 motor strength present throughout Extrem: General: capillary refill normal and no clubbing, cyanosis or edema Assessment and Plan Assessment and plan (1) Hiatal hernia: Code(s): K44.9 - Diaphragmatic hernia without obstruction or gangrene Status: Acute Assessment and Plan: I have recommended laparoscopic paraesophageal hiatal hernia repair with fundoplication, da Nhung assisted. I have discussed the procedure, risks, benefits, and alternatives with the patient. All questions answered. No changes since last seen in office. (2) GERD (gastroesophageal reflux disease): Qualifiers: Esophagitis presence: without esophagitis Qualified Code(s): K21.9 - Gastro-esophageal reflux disease without esophagitis Code(s): K21.9 - Gastro-esophageal reflux disease without esophagitis Status: Acute"
== END 2025-02-04 10:19 | disposition home or self-care (01) ==
LOC: ANHIMG 10:20
PROVIDERS: PCP Internal Medicine; Visit Provider Internal Medicine
DX: R92.8 Other abnormal and inconclusive findings on diagnostic imaging of breast (principal)
CPT/HCPCS: 77061; 77065; G0279

== ENCOUNTER 2025-06-14 07:46 | Outpatient (CLI) | payer MEDICARE, SELFPAY ==
--- NOTE | ~2025-06-14 | US_ITS ---
US right upper quadrant INDICATION: Hyperbilirubinemia PROCEDURE: Realtime right upper abdominal ultrasound. COMPARISON: No prior studies for comparison. FINDINGS: The pancreas is normal without focal mass or pancreatic ductal dilation. Liver echotexture is diffusely increased consistent with fatty infiltration. There is normal directional flow in the portal vein. There are gallstones. No gallbladder wall thickening or pericholecystic fluid. Common bile duct measures 3 mm. No sonographic Encinas's sign. Right renal echotexture is unremarkable. IMPRESSION: 1: Cholelithiasis. Reviewed, dictated and finalized at location O. IMPRESSION: 1: Cholelithiasis.
== END 2025-06-14 07:47 | disposition home or self-care (01) ==
LOC: MICIMG 07:47
PROVIDERS: PCP Internal Medicine; Visit Provider Internal Medicine
DX: K80.20 Calculus of gallbladder without cholecystitis without obstruction (principal); E80.6 Other disorders of bilirubin metabolism
CPT/HCPCS: 76705

== ENCOUNTER 2025-08-07 10:26 | Outpatient (CLI) | payer MEDICARE, SELFPAY ==
--- NOTE | ~2025-08-07 | MM_ITS ---
EXAMINATION: MM diagnostic rosemary BI w anupama INDICATION: 75-year old female; BI-RADS 3, short-term follow-up of left breast calcifications. Screening right breast are COMPARISON: 02/04/2025 through 08/13/2019 TECHNIQUE: : Bilateral Digital breast tomosynthesis CC, MLO views and ML with magnification views in ML and CC of the left breast were obtained with computer- aided detection to assist in interpretation of the study. FINDINGS: The breasts are almost entirely fatty. A group of linear round and punctate microcalcifications that spans 0.5 cm seen in superior lateral at middle depth in the LEFT breast. This finding correlates to the previously reported probably benign calcifications. No focal dominant mass, architectural distortion, or suspicious microcalcifications are identified in the rest of either breast. IMPRESSION: 1. Suspicious LEFT breast group of microcalcifications in the superior lateral location. Biopsy is recommended. 2. No mammographic evidence of malignancy in the right breast. RECOMMENDATION: Stereotactic biopsy of superior lateral LEFT breast calcifications. BI-RADS 4, SUSPICIOUS Reviewed, dictated and finalized at location B. [employer]
== END 2025-08-07 10:27 | disposition home or self-care (01) ==
LOC: ANHFOHIMG 10:29
PROVIDERS: PCP Internal Medicine; Visit Provider Internal Medicine
DX: R92.8 Other abnormal and inconclusive findings on diagnostic imaging of breast (principal)
CPT/HCPCS: 77062; 77066; G0279